=== PATIENT | female | born 1985 | race African-American/Black ===

== ENCOUNTER 2024-05-17 13:06 | Emergency (ER) | payer MEDICAID ==
[~2024-05-17] VITALS: Ht 154.9 cm; Wt 70.0 kg
[~2024-05-17 13:06] MED LIST: ONDA-239 PO; SUCR1TAB30 PO
[2024-05-17 13:14] VITALS: BP 113/73; PULSE 72; RESP 14; TEMP 36.7; O2SAT 96
[2024-05-17 14:11] LABS: BASOPHILS % 0.7 % (0.0-2.0); EOSINOPHILS % 0.1 % (0.0-5.0); HEMATOCRIT. 37.6 % (36.0-48.0); HEMOGLOBIN. 11.8 g/dL (12.0-16.0); LYMPHOCYTES % 22.9 % (20.0-50.0); MEAN CORPUSCULAR HEMOGLOBIN 25.5 pg (28.0-32.0); MEAN CORPUSCULAR HGB CONC 31.3 g/dL (31.0-37.0); MEAN CORPUSCULAR VOLUME 81.4 fL (81.0-99.0); MEAN PLATELET VOLUME 8.9 fl (7.4-10.4); MONOCYTES % 10.2 % (2.0-8.0); NEUTROPHILS % 66.1 % (40.0-76.0); PLATELET 229 x1000/uL (130-400); RED BLOOD CELL COUNT 4.62 mill/uL (4.2-5.4); RED CELL DISTRIBUTION WIDTH 14.2 % (11.6-14.6); WHITE BLOOD COUNT 9.5 x1000/uL (4.5-11.0)
[2024-05-17 14:21] LABS: CHLORIDE 103 mEq/L (98-107); POTASSIUM 4.1 mEq/L (3.5-5.1); SODIUM 141 mEq/L (136-145)
[2024-05-17 14:22] LABS: CARBON DIOXIDE 30 mEq/L (21-32)
[2024-05-17 14:23] LABS: CALCIUM 9.5 mg/dL (8.7-10.4)
[2024-05-17 14:27] LABS: CREATININE 0.9 mg/dL (0.6-1.0)
[2024-05-17 14:28] LABS: ALANINE AMINOTRANSFERASE 19 IU/L (10-49); GLUCOSE 90 mg/dL (70-105); UREA NITROGEN BLOOD 10 mg/dL (9-23)
[2024-05-17 14:29] LABS: ALBUMIN 3.8 g/dL (3.2-4.8); ASPARTATE AMINOTRANSFERASE 19 IU/L (<34)
[2024-05-17 14:30] LABS: BILIRUBIN DIRECT 0.3 mg/dL (<=3.0); BILIRUBIN TOTAL 0.8 mg/dL (0.1-1.0); PROTEIN TOTAL 6.7 g/dL (6.0-8.3)
[2024-05-17 14:34] LABS: CLARITY URINE CLOUDY (CLEAR); COLOR URINE DARK YELLOW (YELLOW); GLUCOSE URINE NEGATIVE (NEGATIVE); KETONES URINE 3+ (NEGATIVE); LEUKOCYTE ESTERASE URINE TRACE (NEGATIVE); NITRITE URINE NEGATIVE (NEGATIVE); OCCULT BLOOD URINE NEGATIVE (NEGATIVE); PH URINE >=9.0 (4.5-8.0); PROTEIN URINE 2+ (NEGATIVE); SPECIFIC GRAVITY URINE 1.037 (1.005-1.030)
[2024-05-17] MEDS: SODIUM CHLORIDE 0.9% 1,000 ML IV ONE (14:55)
[2024-05-17] MEDS: METOCLOPRAMIDE HCL 10MG/2ML VIAL IV ONE (15:00)
[2024-05-17] MEDS: KETOROLAC 30MG/ML VIAL IV STA (15:00)
[2024-05-17 15:08] LABS: BACTERIA URINE 1+; RBC URINE 0-2 /hpf (0-2); SQUAMOUS EPITHELIAL CELL URINE RARE /lpf (RARE/1+); WBC URINE 0-2 /hpf (0-2)
[2024-05-17 18:08] LABS: HCG SCREEN NEGATIVE
== END 2024-05-17 15:44 | disposition home or self-care (01) ==
LOC: ER 13:06
DX: R11.0 Nausea (principal); F12.90 Cannabis use, unspecified, uncomplicated
CPT/HCPCS: 99285; 96374; 96361; 96375; 80053; 81003; 81025; 84703; 83690; 85025; 36415; 80076; J1885; J2765; J7030